=== PATIENT | male | born 1955 | race Hispanic/Latino ===

== ENCOUNTER 2024-04-06 10:56 | Day surgery (SDC) | payer MEDICARE ==
[2024-04-05 13:42] LABS: BASOPHILS # (AUTO) 0.1 (0.0-0.1); BASOPHILS % 0.9 % (0.0-1.0); EOSINOPHILS # (AUTO) 0.3 (0.0-0.4); EOSINOPHILS % 3.8 % (0.0-6.0); HEMATOCRIT 33.8 % (38.2-49.6); HEMOGLOBIN 10.6 g/dL (14.0-18.0); LYMPHOCYTES % 28.9 % (18.0-39.1); MEAN CORPUSCULAR HEMOGLOBIN 26.9 pg (28-32); MEAN CORPUSCULAR HGB CONC 31.4 g/dL (31-35); MEAN CORPUSCULAR VOLUME 85.8 fL (81-99); MONOCYTES # (AUTO) 0.7 (0.2-0.8); MONOCYTES % 9.7 % (4.4-11.3); NEUTROPHILS # (AUTO) 3.8 (2.1-6.9); NEUTROPHILS % 56.4 % (38.7-80.0); PLATELET COUNT 196 x10e3/uL (140-360); RED BLOOD COUNT 3.94 x10e6/uL (4.3-5.7); RED CELL DISTRIBUTION WIDTH 12.9 % (11.7-14.4); WHITE BLOOD COUNT 6.78 x10e3/uL (4.8-10.8)
[2024-04-05 13:52] LABS: INR 1.01; PROTHROMBIN TIME 13.8 seconds (11.9-14.5)
[2024-04-05 14:02] LABS: ALBUMIN 3.7 g/dL (3.5-5.0); ALBUMIN/GLOBULIN RATIO 1.1 (0.8-2.0); BILIRUBIN,TOTAL 0.7 mg/dL (0.2-1.2); CALCIUM 9.2 mg/dL (8.4-10.2); CREATININE, SERUM 1.56 mg/dL (0.72-1.25); TOTAL PROTEIN 7.2 g/dL (6.5-8.1)
[2024-04-06] VITALS (14 sets, daily range): BP systolic 108–132; BP diastolic 58–93; PULSE 59–65; RESP 10–21; TEMP 97.2–97.4; O2SAT 91–100
[~2024-04-06] VITALS: Ht 180.3 cm; Wt 113.4 kg
[~2024-04-06 10:56] MED LIST: AMBIEN10 MG PO; AMITRIPTYLINE H10 MG PO; ASPIRIN81 MG PO; ATORVASTATIN CA20 MG PO; BUMETANIDE1 MG PO; CARVEDILOL25 MG PO; CLOPIDOGREL75 MG PO; CYMBALTA30 MG PO; FUROSEMIDE40 MG PO; GABAPENTIN300 MG PO; LISINOPRIL10 MG PO; LYRICA100 MG PO; METFORMIN HCL500 MG PO; ROSUVASTATIN CA20 MG; SPIRONOLACTONE25 MG PO; TRAZODONE HCL50 MG PO; VITAMIN B 12 PO; VITAMIN D3 PO; XULTOPHY 100 UNI3 ML; ZETIA10 MG PO
[2024-04-06] MEDS ORDERED: HEPARIN SOD (PORCINE) 1000 UNIT/ML 30ML ONE (11:36)
[2024-04-06] MEDS ORDERED: VERAPAMIL HCL 2.5 MG/ML 2 ML VIAL ONE (11:36)
[2024-04-06] MEDS ORDERED: LIDOCAINE HCL 2% LOCAL 20 ML VIAL ONE (11:37)
[2024-04-06] MEDS ORDERED: NITROGLYCERIN/D5W 200 MCG/ML 250 ML ONE (11:37)
[2024-04-06] MEDS ORDERED: HEPARIN SOD/SOD CHLORIDE 2,000 ML ONE (11:37)
[2024-04-06] MEDS ORDERED: SODIUM CHLORIDE 0.9% 1000ML 1,000 ML ONE (11:37)
[2024-04-06] MEDS ORDERED: IOPAMIDOL 370 MG/ML 100 ML INFUS..BTL INJ ONE (11:37)
[2024-04-06] MEDS: DIPHENHYDRAMINE HCL 25 MG CAP ONE (13:27)
[2024-04-06] MEDS: ALPRAZOLAM 0.5 MG TAB ONE (13:27)
[2024-04-06] MEDS ORDERED: FENTANYL CITRATE/PF 100MCG/2 ML INJ ONE (13:47)
[2024-04-06] MEDS ORDERED: MIDAZOLAM HCL 2 MG/2 ML VIAL ONE (13:47)
== END 2024-04-06 19:00 | disposition home or self-care (01) ==
LOC: CATH LAB 10:56
PROVIDERS: ATTEND Internal Medicine
DX: I25.810 Atherosclerosis of coronary artery bypass graft(s) without angina pectoris (principal); I25.82 Chronic total occlusion of coronary artery; R94.39 Abnormal result of other cardiovascular function study; I11.0 Hypertensive heart disease with heart failure; I50.20 Unspecified systolic (congestive) heart failure; Z01.812 Encounter for preprocedural laboratory examination; Z79.02 Long term (current) use of antithrombotics/antiplatelets; Z79.82 Long term (current) use of aspirin; Z79.899 Other long term (current) drug therapy; E78.5 Hyperlipidemia, unspecified; Z68.34 Body mass index [BMI] 34.0-34.9, adult; Z95.1 Presence of aortocoronary bypass graft; Z87.891 Personal history of nicotine dependence; Z82.49 Family history of ischemic heart disease and other diseases of the circulatory system
CPT/HCPCS: 36415 ×2; 76937; 80053; 82948; 85025; 85610; 93459; C1769; C1894; J1644; J2001; J2250; J3010; J7030; Q9967; 99152; 99153; J2003